=== PATIENT | male | born 1960 | race African-American/Black ===

== ENCOUNTER 2016-12-28 14:05 | Emergency (ER) | payer OTHER ==
[2016-12-28] MEDS ORDERED: TDAP ADULT 0.5 ML INJ (BOOSTRIX) IM ONE (14:17)
--- NOTE | 2016-12-28 15:18 | EDPHY ---
H & P HPI/ROS: CHIEF COMPLAINT: Thumb laceration HISTORY OF PRESENT ILLNESS: Patient was cutting open a package of beef with a kitchen knife just prior to arrival when he accidentally cut his left thumb. Moderate bleeding that has been maintained with pressure. No pulsatile flow. No numbness. No difficulty flexing or extending the thumb. No injuries elsewhere. 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 Pain is minimal with palpation. Improved at rest. No radiating pain. No other associated complaints or modifying factors. TIME OF INJURY: Less than an hour TETANUS STATUS: Up-to-date REVIEW OF SYSTEMS: Ten systems reviewed and are negative unless otherwise noted in the HPI EXAMINATION General Appearance: Alert, no distress Head: normocephalic, atraumatic Cardiovascular: Pulses normal throughout. Symmetric radial pulses are 2+. Brisk cap refill Neurological: A&O, sensory symmetric, strength symmetric. Two point sensation intact. Skin: Warm and dry, no rash. 2 cm laceration to the pad of the left thumb, volar. Extremities: Tenderness of the left thumb laceration. No tenderness of the bony portion of the hand. Range of motion of the thumb and middle fingers fully intact. Neurovascular intact distal thumb injury. Psychiatric: Mood and affect normal MDM: 2:35 p.m. Left thumb laceration from a kitchen knife. He is neurovascular intact distally. I will apply digital block proceeded with irrigation and closure. No mechanical deficits. 3:20 p.m. Left thumb laceration. This has been irrigated and closed. There is no foreign body in the wound. He remains neurovascular intact post procedure with excellent signs of perfusion and no motor deficits. Wound care discussed. PROCEDURE: Digital Block Indication: Finger laceration Consent: Verbal Location: Left thumb Anesthesia: Lidocaine 1% plain, 0.25% Marcaine plain, 5mL Description: After prep of the base of the thumb, the above anesthesia was administered. Tolerated well. Good anesthesia. No bleeding. Neurovascular intact distally Complications: None PROCEDURE: Laceration repair Consent: Verbal Location: Left thumb Length of repair: 2.0 cm Complexity: simple Layer involvement: single Anesthesia: Digital block Irrigation: Extensive Debridement: None Procedure description: Following good anesthesia, the wound was copiously irrigated. Wound bed was explored and there is no foreign body noted. Wound borders were approximated well with good hemostasis. Tolerated well without complication. Suture/Staple material: 5-0 prolene, 6 interrupted sutures Wound care: Routine as discussed Suture/Staple removal: Days SUTURE STAPLE REMOVAL: 7-10 days ED Precautions: Worsening pain. Erythema, edema, cyanosis, pallor, paresthesia or anesthesia. SUPERVISION: This patient was independently evaluated without direct examination by the attending physician. Case was discussed with attending physician. Source: Patient Exam Limitations: No limitations Allergies/Adverse Reactions: No Known Allergies Allergy (Unverified 12/28/16 14:18) Home Medications: Medication Instructions Recorded Benecar 12/28/16 HCTZ (*) 12/28/16 Testosterone 12/28/16 Medical Decision Making - Data Points Medications Given: Discontinued Medications Diphtheria/Tetanus/Acell Pertussis (Boostrix) 0.5 ml IM .ONCE ONE Stop: 12/28/16 14:18 Last Admin: 12/28/16 14:46 Dose: 0.5 ml Departure - Departure Disposition: Home, Routine, Self-Care Clinical Impression: Laceration of thumb, left Qualifiers: Encounter type: initial encounter Qualified Code(s): S61.012A - Laceration without foreign body of left thumb without damage to nail, initial encounter Condition: Good Instructions: Care For Your Stitches (ED) Additional Instructions: Daily wound care as discussed. Return to the ER in 7-10 days for suture removal. Referrals: Judith Juarez MD [[facility] [place] Primary [place] Provider] - As per Instructions Stand Alone Forms: Work Limited Duty
[2016-12-28 15:24] VITALS: RESP 16; TEMP 98.1
[2016-12-28 15:40] VITALS: BP 192/102; PULSE 80; O2SAT 97
== END 2016-12-28 15:37 | disposition home or self-care (01) ==
PROC: 0HQGXZZ Repair Left Hand Skin, External Approach (ICD-10-PCS; principal; 2016-12-28)
DX: S61.012A Laceration without foreign body of left thumb without damage to nail, initial encounter (principal); Z23 Encounter for immunization; W26.0XXA Contact with knife, initial encounter; Y92.000 Kitchen of unspecified non-institutional (private) residence as the place of occurrence of the external cause